=== PATIENT | female | born 1985 | race Caucasian/White ===

== ENCOUNTER 2021-12-25 16:05 | Emergency (ER) | payer OTHER ==
[~2021-12-25] VITALS: Ht 170.2 cm; Wt 113.4 kg
--- NOTE | 2021-12-25 16:05 | NUR ---
PATIENT BIBA VIA GURNEY INTO BED 9
[2021-12-25] MEDS ORDERED: HYDROcodone/APAP 5/325 MG 1 TAB TAB PO ONE (16:15)
[2021-12-25 16:17] VITALS: BP 140/80
--- NOTE | 2021-12-25 16:26 | NUR ---
PD AT BEDSIDE
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
--- NOTE | 2021-12-25 16:50 | NUR ---
PATIENT TAKEN TO RADIOLOGY VIA GURNEY
--- NOTE | 2021-12-25 17:00 | NUR ---
PATIENT STABLE IN BED, ALL NEEDS MET
--- NOTE | 2021-12-25 17:21 | NUR ---
XRAY AT PATIENT BEDSIDE
[2021-12-25 18:29] VITALS: BP 125/76
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
--- NOTE | 2021-12-25 18:40 | NUR ---
The patient's care was reviewed and supervised by Deb Blair RN.
== END 2021-12-25 18:32 | disposition home or self-care (01) ==
LOC: MED 16:05
DX: M79.10 Myalgia, unspecified site (principal); J45.909 Unspecified asthma, uncomplicated; V89.2XXA Person injured in unspecified motor-vehicle accident, traffic, initial encounter; Y93.89 Activity, other specified; Y92.89 Other specified places as the place of occurrence of the external cause; Y99.8 Other external cause status
CPT/HCPCS: 70450; 71045; 72125; 73030; 73110; 99284; Q0092

== ENCOUNTER 2024-03-26 20:14 | Emergency (ER) | payer OTHER ==
[~2024-03-26] VITALS: Ht 170.2 cm; Wt 122.5 kg
[2024-03-26 20:29] VITALS: BP 120/68; PULSE 130; RESP 18; TEMP 101.2; O2SAT 98
[2024-03-26 20:44] LABS: FLU A ANTIGEN negative (NEGATIVE); FLU B ANTIGEN negative (NEGATIVE)
[2024-03-26] MEDS ORDERED: ACETAMINOPHEN EXTRA STRENGTH 500 MG TAB ONE (20:59)
[2024-03-26] MEDS: ACETAMINOPHEN EXTRA STRENGTH 500 MG TAB PO ONE (21:09)
[2024-03-26 21:37] LABS: APPEARANCE,URINE CLEAR (CLEAR); BILIRUBIN,URINE NEGATIVE (NEGATIVE); BLOOD, URINE 1+ (NEGATIVE); COLOR,URINE YELLOW (YELLOW); LEUKOCYTE ESTERASE ,URINE 2+ (NEGATIVE); NITRITE, URINE POSITIVE (NEGATIVE); PROTEIN,URINE 2+ (NEGATIVE); UGLUCOSE NEGATIVE (NEGATIVE)
[2024-03-26] MEDS ORDERED: BENZ100C6 PO (21:39)
[2024-03-26] MEDS ORDERED: CEPH-588 PO (21:39)
[2024-03-26] MEDS ORDERED: ACET-10509 PO (21:39)
[2024-03-26] MEDS ORDERED: IBUP-2213 PO (21:39)
[2024-03-26 21:42] LABS: WBC,URINE >25 (MANY) /HPF (0-5)
[2024-03-26 21:43] LABS: BACTERIA,URINE FEW /HPF (None Seen); MUCUS,URINE None Seen /LPF (None Seen); RBC,URINE 0-5 /HPF (0-5); SQUAMOUS EPITHELIAL CELL,UR 0-3 (FEW) /LPF (0-3 (FEW))
[2024-03-26] MEDS: IBUPROFEN 600 MG TAB PO ONE (21:51)
[2024-03-26 22:09] VITALS: BP 120/68; PULSE 130; RESP 18; TEMP 98; O2SAT 98
== END 2024-03-26 22:09 | disposition home or self-care (01) ==
LOC: MED 20:14
DX: N39.0 Urinary tract infection, site not specified (principal); Z20.822 Contact with and (suspected) exposure to COVID-19; R50.9 Fever, unspecified; R05.9 Cough, unspecified; J02.9 Acute pharyngitis, unspecified; H92.09 Otalgia, unspecified ear; M79.10 Myalgia, unspecified site; J45.909 Unspecified asthma, uncomplicated; Z79.1 Long term (current) use of non-steroidal anti-inflammatories (NSAID); Z79.2 Long term (current) use of antibiotics; Z79.899 Other long term (current) drug therapy
CPT/HCPCS: 71046; 81001; 81025; 87086; 87186; 99284